=== PATIENT | female | born 1970 | race Caucasian/White ===

== ENCOUNTER 2018-04-23 04:04 | Emergency (ER) | payer MEDICAID ==
[~2018-04-23] VITALS: Ht 157.5 cm; Wt 72.0 kg
[2018-04-23 04:24] LABS: GLUCOSE,POINT OF CARE 84 MG/DL (70-110)
[2018-04-23] MEDS ORDERED: KETOROLAC TROMETHAMINE 60 MG/2 ML VIAL IM ONE (04:45)
[2018-04-23 05:29] VITALS: BP 106/61
== END 2018-04-23 05:34 | disposition home or self-care (01) ==
LOC: EMS 04:05
DX: G44.209 Tension-type headache, unspecified, not intractable (principal); F10.20 Alcohol dependence, uncomplicated; Z59.0 Homelessness
CPT/HCPCS: 82962; 93005; 96372; 99283; J1885